=== PATIENT | male | born 1965 | race Caucasian/White ===

== ENCOUNTER 2018-08-17 10:34 | Observation (INO) ==
[2018-08-17] MEDS ORDERED: Nitroglycerin 0.4 MG TAB.SUBL SL PRN ×2 (10:50→12:11)
[2018-08-17] MEDS ORDERED: Aspirin 81 MG TAB.CHEW PO STA (10:50)
--- NOTE | 2018-08-17 10:54 | Emergency Department Note ---
Disposition Clinical Impression: Chest pain Disposition: Admitted As Inpatient Condition: Good Time of Disposition: 11:40 Chest Pain HPI - General Chief Complaint: ED Chest Pain Stated Complaint: chest pain left leg pain Time Seen by Provider: 08/17/18 10:35 Source: patient, EMS Mode of arrival: ambulatory Limitations: no limitations Vital Signs Reviewed: Yes Nursing Notes Reviewed: Yes - History of Present Illness HPI Narrative: Patient presents to ER complaining of high blood pressure and chest discomfort today. Substernal nonradiating. He also complained of shortness of breath and some nausea denies vomiting fevers chills belly pain diarrhea or other complaints, he says he took all of his daily medications this morning. Pt complaint: chest pain Onset (ago): Just LAYER OFF Duration: intermittent Onset: during rest Pain Location: substernal Severity: now resolved Severity scale (1-10): 0 Quality: tightness Pain Radiation: none Improves with: nothing Worsens with: nothing Associated symptoms: Reports: nausea, dyspnea Treatments prior to arrival chest pain: none - Related Data Previous Rx's Medication Instructions Recorded Lansoprazole [Prevacid] 30 mg PO DAILY 14 Days #14 08/10/18 capsule. Lisinopril [Zestril] 20 mg PO DAILY #30 tablet 08/10/18 Sucralfate [Carafate] 1 gm PO QIDAC #28 tablet 08/10/18 Allergies Allergy/AdvReac Type Severity Reaction Status Date / Time No Known Allergies Allergy Verified 08/10/18 10:07 All systems ED: reviewed and negative except as stated. Review of Systems: As Per HPI Constitutional: Denies: fever, chills, weakness, weight change Eyes: Denies: eye pain, eye discharge, vision change ENT ED: Denies: ear pain, throat pain, dental pain, hearing loss, epistaxis, congestion, dysphagia Cardiovascular: Reports: as per HPI, chest pain Respiratory: Reports: as per HPI, dyspnea Gastrointestinal: Denies: abdominal pain, nausea, vomiting, diarrhea, constipation, hematemesis, melena, hematochezia Genitourinary: Denies: urgency, dysuria, frequency, hematuria Musculoskeletal: Denies: back pain, neck pain, arthralgia, myalgia Integumentary: Denies: rash, abrasion, lesions Neurological: Denies: headache, weakness, numbness, paresthesias, confusion, abnormal gait, vertigo Psychiatric: Denies: anxiety, depression, suicidal thoughts, homicidal thoughts, auditory hallucinations, visual hallucinations Endocrine: Denies: fatigue Hematological/Lymphatic: Denies: easy bleeding, easy bruising Allergic/Immunologic: Denies: facial swelling, urticaria Chest Pain PMH - Past Medical History Medical history: Reports: hypertension Surgical history: Reports: other (Titanium collin in spine) Psychiatric history: Reports: no psych history - Social History Smoking Status: Current every day smoker Alcohol use: Reports: none Drug use: Reports: none Physical Exam - General Limitations: no limitations General appearance: alert - Head Head exam: atraumatic, normocephalic, normal inspection - Eye Eye exam: Present: normal appearance, PERRL, EOMI - ENT ENT exam: normal exam, normal oropharynx, mucous membranes moist - Neck Neck exam: Present: normal inspection, full ROM, trachea midline - Chest Chest inspection: Present: normal inspection, symmetric chest wall rise - Respiratory Respiratory exam: Present: normal lung sounds bilaterally - Cardiovascular Cardiovascular exam: Present: regular rate, normal rhythm, normal heart sounds - Abdominal Exam Abdominal exam: Present: soft, Non-Tender. Absent: tenderness, distention, guarding, rebound, rigidity - Extremities Exam Extremities exam: Present: normal inspection, full ROM. Absent: tenderness, pedal edema - Back Exam Back exam: Present: normal inspection, full ROM. Absent: tenderness - Neurological Exam Neurological exam: Present: alert, oriented X3 - Psychiatric Psychiatric exam: Present: normal affect, normal mood - Skin Skin exam: Present: warm, dry, intact Course Vital Signs Temperature 98.6 F 08/17/18 10:37 Pulse Rate 72 08/17/18 10:37 Respiratory Rate 18 08/17/18 10:37 Blood Pressure 132/100 08/17/18 10:37 O2 Sat by Pulse Oximetry 99 08/17/18 10:37 Temperature 98.6 F 08/17/18 10:37 Pulse Rate 76 08/17/18 11:39 Respiratory Rate 18 08/17/18 11:39 Blood Pressure 133/85 08/17/18 11:39 O2 Sat by Pulse Oximetry 98 08/17/18 11:39 Oxygen Delivery Oxygen Delivery Room Air Chest Pain - MDM Narrative Medical decision making narrative: I reviewed the patient's medication list Case was discussed with Dr. Ramirez who has graciously agreed to admit the patient to the hospital and his care - Lab Data Lab results reviewed: Yes I reviewed the patient's lab results. Result diagrams: 08/17/18 11:16 08/17/18 11:16 Lab Results 08/17/18 08/17/18 08/17/18 Range/Units 11:16 11:16 11:30 WBC 6.6 (4.3-11.1) K/mcL RBC 5.32 (4.19-5.50) M/mcL Hgb 16.6 (12.9-16.9) g/dL Hct 47.8 (37.5-50.1) % MCV 89.8 (83.0-100.0) fL MCH 31.2 (28.0-33.3) pg MCHC 34.7 (31.6-35.5) g/dL RDW 12.5 (11.5-14.5) % Plt Count 263 (140-400) K/mcL MPV 10.0 (9.4-12.4) fL Immature Gran % 0.3 (0-4) % Seg Neutrophils % 68.1 % Lymphocytes % 20.8 % Monocytes % 7.8 % Eosinophils % 2.1 % Basophils % 0.9 % Neutrophils # 4.5 (1.6-8.9) K/mcL Lymphocytes # 1.4 (0.6-4.6) K/mcL Monocytes # 0.5 (0.0-1.3) K/mcL Eosinophils # 0.1 (0.0-0.6) K/mcL Basophils # 0.1 (0.0-0.2) K/mcL Sodium 132 L (136-145) mEq/L Potassium 4.4 (3.5-5.1) mEq/L Chloride 98 (98-107) mEq/L Carbon Dioxide 28 (23-29) mEq/L BUN 6 (6-20) mg/dL Creatinine 0.56 L (0.70-1.30) mg/dL Est GFR ( Amer) > 60 (> 60) Est GFR (Non-Af Amer) > 60 (> 60) BUN/Creatinine Ratio 11 (6-26) Glucose 105 (70-105) mg/dL Calculated Osmolality 272 L (280-300) Calcium 8.8 (8.6-10.3) mg/dL Total Bilirubin 0.9 (0.3-1.0) mg/dL AST 15 (13-39) Units/L ALT 11 (7-52) Units/L Alkaline Phosphatase 61 (34-104) Units/L Troponin I < 0.03 (< 0.04) ng/mL Serum Total Protein 7.2 (6.4-8.9) g/dL Albumin 4.2 (3.5-5.7) g/dL Globulin 3.0 (2.4-3.5) g/dL Albumin/Globulin Ratio 1.4 (1.1-2.2) Urine Color Yellow (Yellow) Urine Clarity Clear (Clear) Urine pH 7.5 (5.0-8.0) pH Units Ur Specific [place] 1.015 (1.010-1.025) Urine Protein Negative (Neg-Trace) mg/dL Urine Glucose (UA) Normal (Normal) mg/dL Urine Ketones Negative (Negative) mg/dL Urine Blood Negative (Negative) Urine Nitrite Negative (Negative) Urine Bilirubin Negative (Negative) Urine Urobilinogen Normal (Normal) mg/dL Ur Leukocyte Esterase Negative (Negative) Ur Culture Indicated? NO (NO) Urine Opiates Screen (Wdodyr=941) ng/mL Ur Oxycodone Screen (Cutoff= 100) ng/mL Ur Barbiturates Screen (Hvzuha=234) ng/mL Ur Phencyclidine Scrn (Cutoff=25) ng/mL Ur Amphetamines Screen (Jgrdcc=8119) ng/mL U Benzodiazepines Scrn (Kcvmtb=752) ng/mL Urine Cocaine Screen (Cutoff= 300) ng/mL U Marijuana (THC) Screen (Cutoff = 50) ng/mL Ur Drug Screen Interp 08/17/18 Range/Units 11:30 WBC (4.3-11.1) K/mcL RBC (4.19-5.50) M/mcL Hgb (12.9-16.9) g/dL Hct (37.5-50.1) % MCV (83.0-100.0) fL MCH (28.0-33.3) pg MCHC (31.6-35.5) g/dL RDW (11.5-14.5) % Plt Count (140-400) K/mcL MPV (9.4-12.4) fL Immature Gran % (0-4) % Seg Neutrophils % % Lymphocytes % % Monocytes % % Eosinophils % % Basophils % % Neutrophils # (1.6-8.9) K/mcL Lymphocytes # (0.6-4.6) K/mcL Monocytes # (0.0-1.3) K/mcL Eosinophils # (0.0-0.6) K/mcL Basophils # (0.0-0.2) K/mcL Sodium (136-145) mEq/L Potassium (3.5-5.1) mEq/L Chloride (98-107) mEq/L Carbon Dioxide (23-29) mEq/L BUN (6-20) mg/dL Creatinine (0.70-1.30) mg/dL Est GFR ( Amer) (> 60) Est GFR (Non-Af Amer) (> 60) BUN/Creatinine Ratio (6-26) Glucose (70-105) mg/dL Calculated Osmolality (280-300) Calcium (8.6-10.3) mg/dL Total Bilirubin (0.3-1.0) mg/dL AST (13-39) Units/L ALT (7-52) Units/L Alkaline Phosphatase (34-104) Units/L Troponin I (< 0.04) ng/mL Serum Total Protein (6.4-8.9) g/dL Albumin (3.5-5.7) g/dL Globulin (2.4-3.5) g/dL Albumin/Globulin Ratio (1.1-2.2) Urine Color (Yellow) Urine Clarity (Clear) Urine pH (5.0-8.0) pH Units Ur Specific [place] (1.010-1.025) Urine Protein (Neg-Trace) mg/dL Urine Glucose (UA) (Normal) mg/dL Urine Ketones (Negative) mg/dL Urine Blood (Negative) Urine Nitrite (Negative) Urine Bilirubin (Negative) Urine Urobilinogen (Normal) mg/dL Ur Leukocyte Esterase (Negative) Ur Culture Indicated? (NO) Urine Opiates Screen Negative (Bbhlbn=151) ng/mL Ur Oxycodone Screen Negative (Cutoff= 100) ng/mL Ur Barbiturates Screen Negative (Johjpu=397) ng/mL Ur Phencyclidine Scrn Negative (Cutoff=25) ng/mL Ur Amphetamines Screen Negative (Tekwxk=8004) ng/mL U Benzodiazepines Scrn Negative (Zxwyoj=215) ng/mL Urine Cocaine Screen Negative (Cutoff= 300) ng/mL U Marijuana (THC) Screen Negative (Cutoff = 50) ng/mL Ur Drug Screen Interp See Below - Radiology Data Radiology results reviewed: Yes I reviewed the patient's radiology results. - EKG Data EKG attestation: Yes I reviewed and interpreted this EKG. EKG results narrative: EKG shows normal sinus rhythm with a rate of 73 bpm MN interval 159 ms QRS duration 98 ms QT interval 406 ms QTC 448 are axis of 80 degrees
[2018-08-17] MEDS ORDERED: 0.9 % Sodium Chloride 1,000 ML ONE (10:56)
[2018-08-17] MEDS: 0.9 % Sodium Chloride 1,000 ML IVC SCH ×2 (10:57→11:17)
[2018-08-17 11:22] LABS: Basophils # 0.1 K/mcL (0.0-0.2); Basophils % 0.9 %; Eosinophils # 0.1 K/mcL (0.0-0.6); Eosinophils % 2.1 %; Hematocrit 47.8 % (37.5-50.1); Hemoglobin 16.6 g/dL (12.9-16.9); Immature Granulocytes % 0.3 % (0-4); Lymphocytes # 1.4 K/mcL (0.6-4.6); Lymphocytes % 20.8 %; Mean Corpuscular HGB Conc 34.7 g/dL (31.6-35.5); Mean Corpuscular Hemoglobin 31.2 pg (28.0-33.3); Mean Corpuscular Volume 89.8 fL (83.0-100.0); Monocytes # 0.5 K/mcL (0.0-1.3); Monocytes % 7.8 %; Neutrophils # 4.5 K/mcL (1.6-8.9); Platelet Count 263 K/mcL (140-400); Red Blood Count 5.32 M/mcL (4.19-5.50); Red Cell Distribution Width 12.5 % (11.5-14.5); Segmented Neutrophils % 68.1 %
[2018-08-17 11:39] LABS: Alanine Aminotransferase 11 Units/L (7-52); Albumin 4.2 g/dL (3.5-5.7); Albumin/Globulin Ratio 1.4 (1.1-2.2); Alkaline Phosphatase 61 Units/L (34-104); Aspartate Amino Transferase 15 Units/L (13-39); BUN/Creatinine Ratio 11 (6-26); Bilirubin,Total 0.9 mg/dL (0.3-1.0); Blood Urea Nitrogen 6 mg/dL (6-20); Calcium 8.8 mg/dL (8.6-10.3); Carbon Dioxide 28 mEq/L (23-29); Chloride 98 mEq/L (98-107); Glucose 105 mg/dL (70-105); Osmolality,Calculated 272 (280-300); Potassium 4.4 mEq/L (3.5-5.1); Sodium 132 mEq/L (136-145); Total Protein 7.2 g/dL (6.4-8.9); eGFR For Non-African Americans > 60 (> 60)
[2018-08-17 11:42] LABS: Bilirubin,Urine Negative (Negative); Blood,Urine Negative (Negative); Clarity,Urine Clear (Clear); Color,Urine Yellow (Yellow); Glucose,Urine (UA) Normal (Normal); Ketones,Urine Negative (Negative); Leukocyte Esterase,Urine Negative (Negative); Nitrite,Urine Negative (Negative); PH,Urine 7.5 pH Units (5.0-8.0); Protein,Urine Negative (Neg-Trace); Specific Gravity,Urine 1.015 (1.010-1.025); Urobilinogen,Urine Normal (Normal)
[2018-08-17 11:42] LABS: Troponin I < 0.03 ng/mL (< 0.04)
[2018-08-17 11:47] LABS: Amphetamine Screen,Urine Negative ng/mL (Cutoff=1000); Barbiturate Screen,Urine Negative ng/mL (Cutoff=200); Benzodiazepines Screen,Urine Negative ng/mL (Cutoff=200); Cannabinoid Screen,Urine Negative ng/mL (Cutoff = 50); Cocaine Screen,Urine Negative ng/mL (Cutoff= 300); Opiate Screen,Urine Negative ng/mL (Cutoff=300); Phencyclidine Screen,Urine Negative ng/mL (Cutoff=25)
[2018-08-17] MEDS ORDERED: 0.9 % Sodium Chloride 1,000 ML IVC ONE (12:11)
[2018-08-17] MEDS ORDERED: Naloxone 0.4 MG/ML INJ IVP PRN (12:11)
[2018-08-17] MEDS ORDERED: 0.9 % Sodium Chloride 1,000 ML IVC SCH ×2 (12:11)
[2018-08-17 14:46] VITALS: BP 153/98
--- NOTE | 2018-08-17 15:24 | Internal Med Progress Note ---
Date of Encounter: 08/17/18 Time of Encounter: 15:22 - Subjective Interval history: Patient was admitted through ER with diagnosis of chest pain. He left AMA before I could see him. - Constitutional Vitals: Temp Pulse Resp BP Pulse Ox 98.2 F 63 18 153/98 100 08/17/18 14:45 08/17/18 14:45 08/17/18 14:45 08/17/18 14:45 08/17/18 14:45 Internal Medicine: Result - Labs CBC & Chem 7: 08/17/18 11:16 08/17/18 11:16 Labs: Short CBC 08/17/18 Range/Units 11:16 WBC 6.6 (4.3-11.1) K/mcL Hgb 16.6 (12.9-16.9) g/dL Hct 47.8 (37.5-50.1) % Plt Count 263 (140-400) K/mcL Neutrophils # 4.5 (1.6-8.9) K/mcL BMP 08/17/18 11:16 Sodium 132 L Potassium 4.4 Chloride 98 Carbon Dioxide 28 BUN 6 Creatinine 0.56 L Glucose 105 Calcium 8.8 Cardiac Enzymes 08/17/18 08/17/18 Range/Units 11:16 13:20 Troponin I < 0.03 < 0.03 (< 0.04) ng/mL Liver Function 08/17/18 Range/Units 11:16 Total Bilirubin 0.9 (0.3-1.0) mg/dL AST 15 (13-39) Units/L ALT 11 (7-52) Units/L Alkaline Phosphatase 61 (34-104) Units/L Albumin 4.2 (3.5-5.7) g/dL Urine 08/17/18 Range/Units 11:30 Urine Color Yellow (Yellow) Urine Clarity Clear (Clear) Urine pH 7.5 (5.0-8.0) pH Units Ur Specific [place] 1.015 (1.010-1.025) Urine Protein Negative (Neg-Trace) mg/dL Urine Glucose (UA) Normal (Normal) mg/dL - Impressions Impressions Chest X-Ray 08/17/18 10:50 IMPRESSION: Negative chest. D/ / Jace Bustos MD / Jace Bustos MD Interpreting Provider: Jace Bustos MD Consult Discharge Plan - Plan Referrals: NONE,PCP [Primary Care Provider] - 1 week
[2018-08-17] MEDS ORDERED: Sucralfate 1 GM TABLET PO SCH (16:30)
[2018-08-18] MEDS ORDERED: Lisinopril 20 MG TABLET PO SCH (09:00)
--- NOTE | 2018-08-19 16:00 | Electrocardiograph Report ---
[address] [address] Test Date: 2018-08-17 Pat Name: Stanislaw Mills Department: ED-14 Room: [facility] Gender: M Mid Level Provider: : 1965 Requested By: Gabriele Call Order Number: [id number] Reading MD: Jg Escobedo Measurements Intervals Russell Rate: 73 P: 70 ND: 159 QRS: 80 QRSD: 98 T: 61 QT: 406 QTc: 448 Interpretive Statements Sinus rhythm Electronically Signed On 08-19-2018 15:58:48 EST by Jg Escobedo
== END 2018-08-17 14:59 | disposition left against medical advice (07) ==
LOC: EMEROOPIK 10:34 → INPPIK 10:34
PROVIDERS: ADMIT Internal Medicine; ATTEND Internal Medicine